=== PATIENT | female | born 1990 ===

== ENCOUNTER 2023-10-04 08:19 | Emergency (ER) | payer OTHER, SELFPAY ==
[2023-10-04] VITALS (23 sets, daily range): BP systolic 108–137; BP diastolic 51–67; PULSE 59–94; RESP 14–25; TEMP 36.6; O2SAT 97–100; BMI 24.8
--- NOTE | 2023-10-04 08:45 | DI.RAD.S_ITS ---
PROCEDURE: XR CHEST 1V INDICATIONS: Possible stroke TECHNIQUE: One view of the chest was acquired. COMPARISON: None. FINDINGS: Surgical changes and devices: None. Lungs and pleura: Lungs are clear. No pleural effusions or pneumothorax. Mediastinum: Mediastinal contours appear normal. Heart size is normal. Bones and chest wall: No suspicious bony lesions. Overlying soft tissues appear unremarkable. IMPRESSION: No acute cardiopulmonary pathology. Dictated by: Oz Chávez M.D. on 10/04/2023 at 10:11 Approved by: Oz Chávez M.D. on 10/04/2023 at 10:11
--- NOTE | 2023-10-04 08:45 | DI.CT.S_ITS ---
PROCEDURE: CT STROKE INDICATIONS: Positive BE-FAST, Stroke symptoms TECHNIQUE: Noncontrast 4.5 mm thick angled axial sections acquired from the foramen magnum to the vertex, with coronal reformats. For radiation dose reduction, the following was used: automated exposure control, adjustment of mA and/or kV according to patient size. COMPARISON: None. FINDINGS: Image quality: Diagnostic. CSF spaces: Basal cisterns are patent. No extra-axial fluid collections. Ventricles are normal in size and shape. Brain: No midline shift. No intracranial masses or hemorrhage. [place]-white matter interface is normal. Skull and face: Calvarium and visualized facial bones are intact, without suspicious lesions. Sinuses: Visualized sinuses and mastoids are clear. IMPRESSION: No acute intracranial bleed, midline shift or mass effect. No contraindication for IV tPA therapy. Findings were reported to Dr. Hinds in the ER on 10/04/2023 at 8:56 a.m. This study fulfills neurological imaging criteria for inclusion or exclusion of acute stroke therapies based on available published neurological imaging guidelines. Dictated by: Oz Chávez M.D. on 10/04/2023 at 8:55 Approved by: Oz Chávez M.D. on 10/04/2023 at 8:56
[2023-10-04 08:46] LABS: Add Manual Diff / Slide Review NO; Basophils Absolute Auto 100 /uL (0-100); Basophils Percent Auto 0.8 % (0-2); Eosinophils Absolute Auto 100 /uL (0-450); Eosinophils Percent Auto 0.6 % (2-4); Hemoglobin 12.6 g/dL (12.0-16.0); Lymphocytes Absolute Auto 3000 /uL (1100-4500); Lymphocytes Percent Auto 28.2 % (25-40); Mean Corpuscular HGB Conc 33.1 % (30-36); Mean Corpuscular Hemoglobin 30.3 PG (26-34); Mean Corpuscular Volume 91.5 fL (80-100); Monocytes Absolute Auto 900 /uL (0-900); Monocytes Percent Auto 8.4 % (3-14); Neutrophils Absolute Auto 6500 /uL (1500-7000); Platelet Count 290 X10^3/uL (150-400); Red Blood Cell Count 4.15 X10^6/uL (4.0-5.2); Red Cell Distribution Width 14.3 % (11.6-14.8); White Blood Cell Count 10.5 X10^3/uL (4.5-11.0)
--- NOTE | 2023-10-04 08:49 | DI.CT.S_ITS ---
PROCEDURE: CT ANGIO HEAD AND NECK INDICATIONS: rule out stroke TECHNIQUE: After the administration of intravenous contrast, 1 mm thick sections acquired from the aortic arch through the [place]. 3-dimensional eajybvu-[id number] (MIP) and/or volume rendering reformats were acquired of the central intracranial vasculature and neck separately. For radiation dose reduction, the following was used: automated exposure control, adjustment of mA and/or kV according to patient size. COMPARISON: None. FINDINGS: Image quality: Diagnostic. BRAIN: CSF spaces: Ventricles are normal in size and shape. Basal cisterns are patent. No extra-axial fluid collections. Brain: No significant abnormality of the brain can be seen. No area of abnormal enhancement. Skull and face: Calvarium and facial bones appear intact, without suspicious lesions. Orbits appear normal. Sinuses: Sinuses and mastoids are clear. HEAD CT ANGIOGRAPHY: Anterior circulation: Intracranial internal carotid arteries are normal in size and flow. The flow within the paired anterior cerebral arteries is normal and symmetric. The flow within the middle cerebral arteries is normal and symmetric. The anterior communicating artery is seen. No aneurysms are seen. Posterior circulation: Visualized portions of the vertebral arteries demonstrate normal caliber, and join to form a normal appearing basilar artery. Flow within the posterior cerebral arteries is normal and symmetric. No aneurysms are seen. NECK CT ANGIOGRAPHY: Carotid system: The great vessels demonstrate a conventional anatomy as they arise from the aortic arch. The origins of the common carotid arteries appear patent. The common carotid arteries demonstrate normal caliber and courses. The bifurcation regions are both widely patent. The internal carotid arteries demonstrate normal calibers and courses. Posterior circulation: The origins of the vertebral arteries both appear widely patent. The more superior extracranial portions of both vertebral arteries also demonstrate normal courses and calibers. They join to form a normal appearing basilar artery. Soft tissues: Visualized neck soft tissues demonstrate no suspicious abnormalities. Bones: No suspicious bony lesions. Visualized cervical spine appears normally aligned. IMPRESSION: 1. No area of abnormal intracranial enhancement. 2. No hemodynamically significant stenosis or aneurysm is seen in bilateral neck arteries. 3. No hemodynamically significant stenosis or aneurysm is seen in the intracranial circulation. Any quantitative measurements of stenosis were performed using NASCET criteria. Dictated by: Oz Chávez M.D. on 10/04/2023 at 9:19 Approved by: Oz Chávez M.D. on 10/04/2023 at 9:20
[2023-10-04 08:54] LABS: Alanine Aminotransferase 35 IU/L (<35); Albumin Globulin Ratio 1.4 (1.0-2.8); Alkaline Phosphatase 142 U/L (38-126); Aspartate Aminotransferase 29 IU/L (14-36); BUN Creatinine Ratio 24.5 (6-22); Bilirubin Total 0.4 mg/dL (0.2-1.3); Blood Urea Nitrogen 12 mg/dL (7-17); Calcium 8.6 mg/dL (8.4-10.2); Carbon Dioxide 22 mmol/L (22-32); Chloride 112 mmol/L (98-107); Estimated Glomerular Filt Rate > 60 mL/min (>60); Globulin 2.8 g/dL (1.7-4.1); Glucose 125 mg/dL (70-100); HEMOLYSIS < 15 (0-50); Lipase 60 U/L (23-300); Potassium 3.3 mmol/L (3.4-5.1); Sodium 139 mmol/L (137-145); Total Protein 6.8 g/dL (6.3-8.2)
[2023-10-04 08:56] LABS: Creatine Kinase 150 U/L (30-135); Magnesium 2.5 mg/dL (1.6-2.3)
[2023-10-04 08:59] LABS: INR 0.9 (0.9-1.3); Prothrombin Time 10.5 SECONDS (9.4-12.5)
[2023-10-04 09:02] LABS: PTT Partial Thromboplastin Tim 35 SECONDS (25.1-36.5)
[2023-10-04] MEDS: DROPERIDOL 5 MG/2 ML VIAL 0.625 MG IV (09:02)
[2023-10-04 09:09] LABS: Troponin I < 0.012 ng/mL (0.01-0.034)
[2023-10-04 09:34] LABS: Lithium 0.5 mmol/L (0.6-1.2)
[2023-10-04 09:36] LABS: Acetaminophen < 10 ug/mL (10-30); Ethanol (ETOH) < 10 mg/dL; Salicylate < 1.0 mg/dL (<20)
--- NOTE | 2023-10-04 09:38 | ED_ITS ---
HPI - Dizziness General Chief Complaint: Abdominal Pain Stated Complaint: dizzy/vomiting Time Seen by Provider: 10/04/23 08:20 History of Present Illness HPI Narrative: 32-year-old female with a history of a ?duodenal switch? surgery ADD and bipolar disorder presenting with acute onset of dizziness and vision changes. Patient states that her symptoms began at 7:20 a.m., she was normal prior to that. Described visual changes, being unable to read her cell phone but without having complete loss of vision, she has not endorsing double vision, also says that she feels very dizzy. The patient does not have an associated headache. She does have nausea and vomiting. She has not noted any weakness or numbness. She has not had similar symptoms in the past, no ear pain or diminished hearing. Medications are lithium Seroquel and Adderall. She has not taking an anticoagulant. No recent medical procedures, no recent GI bleeding she is on her menstrual period now and reports that she had epistaxis yesterday. No recent head trauma. Related Data Previous Rx's Medication Instructions Recorded meclizine 25 mg tablet 25 mg PO BID PRN dizziness #14 tabs 10/04/23 ondansetron 4 mg disintegrating 4 mg PO Q6H PRN nausea and 10/04/23 tablet vomiting #14 tabs Allergies Allergy/AdvReac Type Severity Reaction Status Date / Time Sulfa (Sulfonamide Allergy Verified 10/04/23 08:25 Antibiotics) Patient History Social History Smoking Status: Current every day smoker Smoking Status: Current every day smoker tobacco type: vaping Substance Use Type: does not use Exam Narrative Exam Narrative: Patient seems to have waxing and waning mental status, appears to be in distress and is vomiting incessantly. HEENT: Pupils are equal and reactive, she has random nystagmus, there is no facial droop or asymmetry no facial numbness tongue protrudes to the midline Neck: Supple without carotid bruit Chest: Lungs are clear, regular rhythm rate no murmur rub or gallop Abdomen: Normal bowel sounds soft and nontender Neuro: Waxing and waning mental status, oriented to person place and time. Difficult to get cooperation with neuro exam unable to appreciate any motor deficit, [id number] she seems ataxic bilaterally this may be a matter cooperation. Heel-iyer is normal bilaterally. Speech is overall fluid however I can not get her to read the stroke scale card, on the other hand she is able to read the packaging on an alcohol prep pad. Sensation is intact x4. Does not have judy-neglect. Initial Vital Signs Initial Vital Signs: Vital Signs Blood Pressure 137/64 10/04/23 08:21 Course Course Course Narrative: Code stroke called immediately upon evaluation. Consulted Dr. Wills you do over stroke Neurology, after his examination review imaging, did not feel that the patient with an acute stroke and thrombolytics not indicated Orders Ordered: ED Orders 10/04/23 08:20 Comprehensive Metabolic Panel Stat Lipase Stat Magnesium Stat PTT Partial Thromboplastin [place] Stat Prothrombin Time INR Stat Troponin & CK Cardiac Panel Stat 10/04/23 08:39 Complete Blood Count AUTO DIFF Stat 10/04/23 08:45 CT Stroke Stat XR chest 1V Stat 10/04/23 08:49 CT angio head and neck Stat 10/04/23 09:10 Acetaminophen Stat Ethanol (ETOH) Stat [place] Stat Salicylate Stat 10/04/23 09:19 EKG-12 Lead Stat 10/04/23 09:20 Test Urine Stat Urinalysis and Microscopic Stat 10/04/23 09:40 Urine Drug Screen, Rapid Stat 10/04/23 10:17 MR head/brain wo con Stat Ondansetron HCl (Ondansetron 4 Mg Odt) 4 mg SL NOW PRN PRN Reason: Nausea And Vomiting Discontinued Medications Droperidol (Droperidol 5 Mg/2 Ml Vial) 0.625 mg IV NOW ONE Stop: 10/04/23 08:45 Last Admin: 10/04/23 09:02 Dose: 0.625 mg Documented By: ELHAM Reevaluation(s) Reevaluation #1: At 12:30 p.m., the patient reports her dizziness was much better as is her nausea. She does not have nystagmus. Her speech is fluent she is keenly alert. Also says that she thinks she might have inadvertently taken a double dose if her morning medications including Wellbutrin and Adderall. If she has done this it was accidental. She feels comfortable being discharged. Consultations Consultation #1: Discussed with tele stroke, Dr. Wills, will evaluate patient Vital Signs Vital signs: Vital Signs - 8 hr 10/04/23 08:21 10/04/23 08:22 10/04/23 08:24 Temperature 97.8 F Pulse Rate 68 64 Respiratory Rate 16 Blood Pressure 137/64 137/64 Pulse Oximetry 98 98 Oxygen Delivery Method Room Air 10/04/23 08:30 10/04/23 09:11 10/04/23 09:11 Temperature Pulse Rate 65 75 Respiratory Rate Blood Pressure 118/59 L Pulse Oximetry 98 97 Oxygen Delivery Method 10/04/23 09:18 10/04/23 09:18 10/04/23 09:30 Temperature Pulse Rate 80 76 Respiratory Rate 19 18 Blood Pressure 122/60 Pulse Oximetry 100 100 Oxygen Delivery Method 10/04/23 09:30 10/04/23 09:42 10/04/23 09:42 Temperature Pulse Rate 65 Respiratory Rate 15 Blood Pressure 125/59 L 112/54 L Pulse Oximetry 100 Oxygen Delivery Method 10/04/23 09:50 10/04/23 09:50 10/04/23 10:00 Temperature Pulse Rate 82 67 Respiratory Rate 15 14 Blood Pressure 120/58 L Pulse Oximetry 98 100 Oxygen Delivery Method 10/04/23 10:00 10/04/23 10:10 10/04/23 10:10 Temperature Pulse Rate 63 Respiratory Rate 16 Blood Pressure 115/51 L 118/61 Pulse Oximetry 98 Oxygen Delivery Method 10/04/23 10:20 10/04/23 10:20 10/04/23 11:02 Temperature Pulse Rate 76 59 L Respiratory Rate 16 Blood Pressure 120/56 L Pulse Oximetry 99 98 Oxygen Delivery Method 10/04/23 11:02 10/04/23 11:10 10/04/23 11:10 Temperature Pulse Rate 64 Respiratory Rate 16 Blood Pressure 128/59 L 115/56 L Pulse Oximetry 99 Oxygen Delivery Method 10/04/23 11:20 10/04/23 11:20 10/04/23 11:30 Temperature Pulse Rate 61 Respiratory Rate 17 Blood Pressure 118/59 L 117/56 L Pulse Oximetry 98 Oxygen Delivery Method 10/04/23 11:30 10/04/23 11:40 10/04/23 11:40 Temperature Pulse Rate 62 66 Respiratory Rate 17 16 Blood Pressure 110/55 L Pulse Oximetry 98 99 Oxygen Delivery Method MDM - Dizziness Lab Data Lab results narrative: CBC is unremarkable, CMP shows potassium of 3.3 probably not clinically significant 10/04/23 08:39 10/04/23 08:20 Labs: Lab Results 10/04/23 10/04/23 10/04/23 Range/Units 08:20 08:39 09:10 WBC 10.5 (4.5-11.0) X10^3/uL RBC 4.15 (4.0-5.2) X10^6/uL Hgb 12.6 (12.0-16.0) g/dL Hct 38.0 (36-46) % MCV 91.5 (80-100) fL MCH 30.3 (26-34) PG MCHC 33.1 (30-36) % RDW 14.3 (11.6-14.8) % Plt Count 290 (150-400) X10^3/uL Neut % (Auto) 62.0 (50-75) % Lymph % (Auto) 28.2 (25-40) % [place] % (Auto) 8.4 (3-14) % Eos % (Auto) 0.6 L (2-4) % Baso % (Auto) 0.8 (0-2) % Neut # (Auto) 6500 (1967-6510) /uL Lymph # (Auto) 3000 (8840-8369) /uL [place] # (Auto) 900 (0-900) /uL Eos # (Auto) 100 (0-450) /uL Baso # (Auto) 100 (0-100) /uL PT 10.5 (9.4-12.5) SECONDS INR 0.9 (0.9-1.3) APTT 35 (25.1-36.5) SECONDS Sodium 139 (137-145) mmol/L Potassium 3.3 L (3.4-5.1) mmol/L Chloride 112 H (98-107) mmol/L Carbon Dioxide 22 (22-32) mmol/L BUN 12 (7-17) mg/dL Creatinine 0.49 L (0.52-1.04) mg/dL Estimated GFR > 60 (>60) mL/min BUN/Creatinine Ratio 24.5 H (6-22) Glucose 125 H (70-100) mg/dL Calcium 8.6 (8.4-10.2) mg/dL Magnesium 2.5 H (1.6-2.3) mg/dL Total Bilirubin 0.4 (0.2-1.3) mg/dL AST 29 (14-36) IU/L ALT 35 H (<35) IU/L Alkaline Phosphatase 142 H (38-126) U/L Total Creatine Kinase 150 H (30-135) U/L Troponin I < 0.012 (0.01-0.034) ng/mL Total Protein 6.8 (6.3-8.2) g/dL Albumin 4.0 (3.5-5.0) g/dL Globulin 2.8 (1.7-4.1) g/dL Albumin/Globulin Ratio 1.4 (1.0-2.8) Lipase 60 (23-300) U/L Urine Color Urine Appearance Urine pH (4.5-8.0) Ur Specific [place] (1.000-1.035) Urine Protein (Negative) Urine Glucose (UA) (Negative) g/dL Urine Ketones (NEGATIVE) Urine Occult Blood (Negative) Urine Nitrate (Negative) Urine Bilirubin (NEGATIVE) Urine Urobilinogen (0.2) E.U./dL Ur Leukocyte Esterase (NEGATIVE) Urine RBC (0-5/HPF) Urine WBC (0-5/HPF) Ur Squamous Epith Cells (0-5/HPF) Urine Bacteria (None) Ur Culture Indicated? Vol Urine Centrifuged Urine Test (Negative) Salicylates < 1.0 (<20) mg/dL U Opiates 300ng/mL cut (Negative) Ur Oxycodone Screen (Negative) Urine Methadone Screen (Negative) Acetaminophen < 10 (10-30) ug/mL Ur Barbiturates Screen (Negative) U Tricyclic Antidepress (Negative) Ur Phencyclidine Scrn (Negative) Ur Amphetamines Screen (Negative) U Methamphetamines Scrn (Negative) Ur MDMA Scrn (Ecstasy) (Negative) U Benzodiazepines Scrn (Negative) [place] 0.5 L (0.6-1.2) mmol/L Urine Cocaine Screen (Negative) U Marijuana (THC) Screen (Negative) Urine Specific [place] (Normal) Ethyl Alcohol < 10 ( - 10) mg/dL Ur Creatinine (Normal) 10/04/23 10/04/23 Range/Units 09:20 09:40 WBC (4.5-11.0) X10^3/uL RBC (4.0-5.2) X10^6/uL Hgb (12.0-16.0) g/dL Hct (36-46) % MCV (80-100) fL MCH (26-34) PG MCHC (30-36) % RDW (11.6-14.8) % Plt Count (150-400) X10^3/uL Neut % (Auto) (50-75) % Lymph % (Auto) (25-40) % [place] % (Auto) (3-14) % Eos % (Auto) (2-4) % Baso % (Auto) (0-2) % Neut # (Auto) (2956-6326) /uL Lymph # (Auto) (0817-7622) /uL [place] # (Auto) (0-900) /uL Eos # (Auto) (0-450) /uL Baso # (Auto) (0-100) /uL PT (9.4-12.5) SECONDS INR (0.9-1.3) APTT (25.1-36.5) SECONDS Sodium (137-145) mmol/L Potassium (3.4-5.1) mmol/L Chloride (98-107) mmol/L Carbon Dioxide (22-32) mmol/L BUN (7-17) mg/dL Creatinine (0.52-1.04) mg/dL Estimated GFR (>60) mL/min BUN/Creatinine Ratio (6-22) Glucose (70-100) mg/dL Calcium (8.4-10.2) mg/dL Magnesium (1.6-2.3) mg/dL Total Bilirubin (0.2-1.3) mg/dL AST (14-36) IU/L ALT (<35) IU/L Alkaline Phosphatase (38-126) U/L Total Creatine Kinase (30-135) U/L Troponin I (0.01-0.034) ng/mL Total Protein (6.3-8.2) g/dL Albumin (3.5-5.0) g/dL Globulin (1.7-4.1) g/dL Albumin/Globulin Ratio (1.0-2.8) Lipase (23-300) U/L Urine Color Yellow Urine Appearance Clear Urine pH 6.5 Normal (4.5-8.0) Ur Specific [place] 1.010 (1.000-1.035) Urine Protein Negative (Negative) Urine Glucose (UA) Negative (Negative) g/dL Urine Ketones Negative (NEGATIVE) Urine Occult Blood 1+ H (Negative) Urine Nitrate Negative (Negative) Urine Bilirubin Negative (NEGATIVE) Urine Urobilinogen 0.2 (0.2) E.U./dL Ur Leukocyte Esterase Negative (NEGATIVE) Urine RBC 0-1/hpf (0-5/HPF) Urine WBC 0-1/hpf (0-5/HPF) Ur Squamous Epith Cells None seen (0-5/HPF) Urine Bacteria None seen (None) Ur Culture Indicated? Cult not indicated Vol Urine Centrifuged 10ml (spun) Urine Test Negative (Negative) Salicylates (<20) mg/dL U Opiates 300ng/mL cut Negative (Negative) Ur Oxycodone Screen Negative (Negative) Urine Methadone Screen Negative (Negative) Acetaminophen (10-30) ug/mL Ur Barbiturates Screen Negative (Negative) U Tricyclic Antidepress Negative (Negative) Ur Phencyclidine Scrn Negative (Negative) Ur Amphetamines Screen Positive H (Negative) U Methamphetamines Scrn Negative (Negative) Ur MDMA Scrn (Ecstasy) Negative (Negative) U Benzodiazepines Scrn Negative (Negative) [place] (0.6-1.2) mmol/L Urine Cocaine Screen Negative (Negative) U Marijuana (THC) Screen Negative (Negative) Urine Specific [place] Normal (Normal) Ethyl Alcohol ( - 10) mg/dL Ur Creatinine Normal (Normal) Point of Care Testing Glucose POC [address] scan - head: My Impression: No acute finding Radiologist's Impression: No acute CT angio head and neck: Radiologist's Impression: No acute findings per Radiology MRI brain: Radiologist's Impression: No acute findings per Radiology ECG Data Interpretation: Normal sinus rhythm, normal intervals, rate of [address] segment changes MDM Narrative Medical decision making narrative: 32-year-old female presenting with acute onset of vertigo nausea and vision loss versus visual changes. Concern is for posterior stroke. This may be peripheral vertigo although symptoms are persistent and do not change with head positioning. Code stroke was called when I evaluated her. Requesting tele stroke consult. Patient is hemodynamically stable, required droperidol for management of nausea and vomiting. MRIs negative for stroke. Neurology tax credit leasing consultant does not think that this is a stroke. Symptoms improved, patient disclosed that she thinks she may have taken a double dose of her morning medications and that her symptoms could be related to that. Symptoms were greatly improved prior to discharge she was ambulatory without difficulty did not have nystagmus and vital signs are normal. I do not think that a double dose of her morning medications including Wellbutrin and Adderall would be likely to cause significant toxicity. I think she is safe for discharge to home. I provided a prescription for ondansetron for nausea and meclizine in case she has recurrence of vertigo. I believe stroke has been excluded within the limits of our capabilities today presentation is also consistent with peripheral vertigo and or accidental medication ingestion. Neither 1 of these would require admission. Critical Care Time Critical Care Time Critical Care Time: Yes Total Critical Care Time: 35 Attestation: Critical care time for acute presentation concerning for stroke included evaluation of patient, consultation with stroke Neurology, consideration of thrombolytic administration Discharge Plan Departure Patient Disposition: Home Clinical Impression: Vertigo Activity Restrictions/Additional Instructions: Emergency department workup today is reassuring. I do not think there was a dangerous cause for your dizziness although it can be very distressing at times. I provided prescriptions for meclizine that you can use as needed if you are having dizziness it may help the symptoms and for ondansetron to use as needed for nausea and vomiting. It is possible this was related to an accidental extra dose of her medications. I think it is safe to continue your regular medications at their usual dosing, please try to avoid double dosing. If you have severe headache uncontrolled vomiting or disabling dizziness recheck in the emergency department. Follow up soon with primary care. Call [phone] to make an appointment for ED follow-up Prescriptions: New ondansetron 4 mg tablet,disintegrating 4 mg PO Q6H PRN (Reason: nausea and vomiting) Qty: 14 0RF meclizine 25 mg tablet 25 mg PO BID PRN (Reason: dizziness) Qty: 14 0RF Stand Alone Forms: Patient Portal/API
[2023-10-04 09:52] LABS: Ur Creatinine Normal (Normal); Ur Specific Gravity Normal (Normal); Urine pH Normal (Normal)
[2023-10-04 09:53] LABS: UR Morphine/Opiate cutoff 300 Negative (Negative); Urine Amphetamines Positive (Negative); Urine Cocaine Negative (Negative); Urine Tetrahydrocannabinol Negative (Negative)
[2023-10-04 09:54] LABS: Urine Barbiturates Negative (Negative); Urine Benzodiazepines Negative (Negative); Urine MDMA Negative (Negative); Urine Methadone Negative (Negative); Urine Methamphetamines Negative (Negative); Urine Oxycodone Negative (Negative); Urine Phencyclidine Negative (Negative); Urine Tricyclic Antidepressant Negative (Negative)
[2023-10-04 10:03] LABS: Appearance Urine UA CLEAR; Bilirubin Urine UA NEGATIVE (NEGATIVE); Color Urine UA YELLOW; Glucose Urine UA NEGATIVE (Negative); Ketones Urine UA NEGATIVE (NEGATIVE); Leukocyte Esterase Urine UA NEGATIVE (NEGATIVE); Nitrite Urine UA NEGATIVE (Negative); Occult Blood Urine UA 1+ (Negative); Protein Urine UA NEGATIVE (Negative); Urobilinogen Urine UA 0.2 E.U./dL (0.2)
[2023-10-04 10:08] LABS: pH Urine UA 6.5 (4.5-8.0)
[2023-10-04 10:10] LABS: Bacteria Urine None Seen; Culture Indicated Urine Cult Not Indicated; RBC Urine 0-1/HPF (0-5/HPF); Squamous Epithelial Cell Urine None Seen (0-5/HPF); Urine Volume 10mL (spun); WBC Urine 0-1/HPF (0-5/HPF)
--- NOTE | 2023-10-04 10:17 | DI.MRI.S_ITS ---
PROCEDURE: MR HEAD/BRAIN WO CON INDICATIONS: vertigo rule out central cause TECHNIQUE: Noncontrast axial T1 spin echo, axial T2 fast spin echo, sagittal and axial FLAIR, coronal T2 fast spin echo, axial gradient echo, axial diffusion and ADC through the brain. COMPARISON: None. FINDINGS: Image quality: Excellent. CSF Spaces: Basal cisterns are patent. No extra-axial fluid collections. Ventricles are normal in size and shape. Brain: No intracranial masses or hemorrhage. [place]/white matter interface is normal. Brainstem appears normal. Diffusion-weighted images demonstrate no acute infarct. No chronic ischemic insults. Normal intravascular flow voids are present. Skull and face: Calvarium has normal marrow signal. Orbits appear normal. Sinuses: Very mild mucosal thickening in left maxillary sinus and sphenoid sinus is seen. IMPRESSION: 1. No acute infarction. No intracranial bleed or midline shift. No finding to explain patient's symptoms. 2. Mild left ethmoid and maxillary sinusitis. Dictated by: Oz Chávez M.D. on 10/04/2023 at 11:18 Approved by: Oz Chávez M.D. on 10/04/2023 at 11:20
[2023-10-04 10:18] LABS: Pregnancy Test Urine Negative (Negative)
--- NOTE | 2023-10-04 10:22 | PC.NURSE ---
Telestroke assessment with Dr Wills from at the bedside via ipad. NIH 2 for facial droop. Pt is drowsy and needed to be stimulated throughout exam for participation. Plan for MRI. Dr Hinds aware. Appt for MRI at 1030am. MRI checklist completed.
[2023-10-04] MEDS: ONDANSETRON 4 MG ODT SL (12:57)
--- NOTE | 2023-10-04 13:04 | PC.NURSE ---
Pt advised not to drive today, per physician. She states her car is at work in [place] and she is staying in a hotel in [place]. Pt's coworker is coming to hospital to pick her up and coworker advised to drive her home. Pt verbalizes understanding.
== END 2023-10-04 13:08 | disposition home or self-care (01) ==
PROVIDERS: Emergency Provider Emergency Medicine
DX: R42 Dizziness and giddiness (principal); H54.7 Unspecified visual loss; R11.0 Nausea
CPT/HCPCS: 70450; 70496; 70498; 70551; 71045; 80053; 80178; 80305; 80320; 80329; 81001; 81025; 82550; 82962; 83690; 83735; 84484; 85025; 85610; 85730; 93005; 96374; 99284; 99285; G0480; J1790; Q9967